=== PATIENT | female | born 1960 | race Caucasian/White ===

== ENCOUNTER 2023-08-15 07:49 | Outpatient (CLI) | payer OTHER ==
[2023-08-15 10:12] LABS: #Basophils 0.05 10x3/uL (0.0-0.2); #Eosinphils 0.27 10x3/uL (0.0-0.5); #Neutrophils 3.46 10x3/uL (1.5-8.4); %Basophils 0.8 % (0.0-2.0); %Eosinophils 4.5 % (0.0-6.0); %Lymphocytes 30.1 % (18.0-47.0); %Monocytes 6.7 % (0.0-10.0); %Neutrophils 57.7 % (40.0-75.0); Hematocrit 41.9 % (34.9-44.5); Hemoglobin 14.6 g/dL (12.0-15.5); Mean Corpuscular HGB CONC 34.8 g/dL (32.0-36.0); Mean Corpuscular Hemoglobin 31.9 pg (27.0-33.0); Mean Corpuscular Volume 91.5 fL (81.6-98.3); Mean Platelet Volume 11.4 fL (7.4-10.4); Platelet Count 199 10x3/uL (150-450); Red Blood Cell (RBC) Count 4.58 10x6/uL (3.90-5.03)
[2023-08-15 10:17] LABS: Anion Gap 13 mmol/L (10-20); BUN (Urea Nitrogen) 17 mg/dL (9.8-20.1); Calc. Creatinine Clearance 0 mL/min (70-130); Calcium 9.7 mg/dL (7.8-10.44); Carbon Dioxide 24 mmol/L (23-31); Chloride 107 mmol/L (98-107); Estimated GFR 69; Glucose 91 mg/dL (80-115); Potassium 4.5 mmol/L (3.5-5.1); Sodium 139 mmol/L (136-145)
== END 2023-08-15 07:50 | disposition home or self-care (01) ==
LOC: LABBT 07:49
PROVIDERS: ATTEND Orthopaedic Surgery Hand Surgery
DX: Z01.818 Encounter for other preprocedural examination (principal); G56.02 Carpal tunnel syndrome, left upper limb; M65.4 Radial styloid tenosynovitis [de Quervain]; M65.832 Other synovitis and tenosynovitis, left forearm
CPT/HCPCS: 80048; 85025; 93005; 93010